=== PATIENT | male | born 1975 | race American Indian/Alaskan Native ===

== ENCOUNTER 2022-02-12 23:52 | Emergency (ER) | payer SELFPAY ==
[2022-02-13 01:44] VITALS: BP 160/94
== END 2022-02-13 04:30 | disposition left against medical advice (07) ==
LOC: ED 23:52
DX: M25.512 Pain in left shoulder (principal); Z53.21 Procedure and treatment not carried out due to patient leaving prior to being seen by health care provider

== ENCOUNTER 2022-02-13 04:15 | Emergency (ER) | payer SELFPAY ==
--- NOTE | 2022-02-13 09:26 | Emergency Department Report ---
Upper Extremity - HPI Chief Complaint: Pain General Stated Complaint: left shoulder pain Time Seen by Provider: 02/13/22 08:53 Upper Extremity: Left Shoulder Symptoms: No Pain with Movement, No Deformity, No Limited Range of Movement, No Numbness, No Weakness, No Swelling, No Bruising/Ecchymosis, No Laceration or Abrasion Other History: 46-year-old black male presents to the emergency department for evaluation. He states that he cannot remember why he came to the emergency department because he has been here so long. After further inquiry, patient was reminded that he put left shoulder pain as his initial complaint. He states that he did have left shoulder pain but does not know when it starts it comes on and off and he does not have any pain at this time. ED Review of Systems ROS: Stated complaint: PAIN ALL OVER Other details as noted in HPI Comment: All other systems reviewed and negative Constitutional: denies: chills, fever Respiratory: denies: shortness of breath Cardiovascular: denies: chest pain Gastrointestinal: denies: abdominal pain, nausea, vomiting Musculoskeletal: denies: back pain Neurological: denies: headache Upper Extremity Exam - Exam General: Vital signs noted. No distress. Alert and acting appropriately. Head and Torso: No HEENT Abnormality, No Neck Tenderness, No Chest/Lungs Abnormality, No Abdominal Tenderness, No Back Tenderness Shoulder Exam: Yes Normal Range of Motion in Shoulder, No Shoulder Tenderness, No Clavicle Tenderness, No Shoulder Deformity, No AC Joint Tenderness Arm Exam: No Arm/Humerus Tenderness, No Arm Deformity Elbow: Yes Normal Range of Motion in Elbow, No Elbow Tenderness, No Elbow Deformity Forearm: No Forearm Tenderness, No Forearm Deformity Wrist: Yes Normal ROM in Wrist, No Wrist Tenderness, No Wrist Deformity, No Snuffbox Tenderness Hand: Yes Normal ROM in Digit(s), No Hand Tenderness, No Hand Deformity, No Digit Tenderness, No Digit(s) Deformity, No Tendon Dysfunction CMS Exam: Yes Normal Distal Pulses, Yes Normal Capillary Refill, Yes Normal Distal Sensation, No Broken Skin ED Medical Decision Making - Medical Decision Making 46-year-old black male presents to the emergency department for evaluation. He states that he cannot remember why he came to the emergency department because he has been here so long. After further inquiry, patient was reminded that he put left shoulder pain as his initial complaint. He states that he did have left shoulder pain but does not know when it starts it comes on and off and he does not have any pain at this time. No gross abnormalities noted on exam. Patient states that he do not even know why he came in the left shoulder pain that he initially complained about is not there anymore. Patient to be discharged home to follow-up with his primary care provider for any further complaints and return to the emergency department for concerning symptoms. He verbalized understanding of and agreement with plan of care. Critical care attestation.: If time is entered above; I have spent that time in minutes in the direct care of this critically ill patient, excluding procedure time. ED Disposition Clinical Impression: Left shoulder pain Qualifiers: Chronicity: unspecified Qualified Code(s): M25.512 - Pain in left shoulder Disposition: 01 HOME / SELF CARE / HOMELESS Is pt being admited?: No Does the pt Need Aspirin: No Condition: Stable Instructions: How to Use Cold Therapy, [id number], Shoulder Pain, [id number] Additional Instructions: Use ibuprofen or Tylenol as needed for pain. Follow-up with primary care provider if no improvement or worsening symptoms. Return to the emergency department as needed. Referrals: ANTONY SNIDER MD [Staff Physician] - 3-5 Days Forms: Work/School Release Form(ED) Time of Disposition: 09:25
== END 2022-02-13 10:05 | disposition home or self-care (01) ==
LOC: ED 04:15
DX: M25.512 Pain in left shoulder (principal)
CPT/HCPCS: 99283